=== PATIENT | female | born 1945 | race Two or more races ===

== ENCOUNTER 2021-09-08 11:35 | Outpatient (CLI) | payer MEDICARE | END 2021-09-08 23:59 | disposition home or self-care (01) | LOC: RAD 11:35 | PROVIDERS: ATTEND Internal Medicine Hematology & Oncology | DX: R91.8 Other nonspecific abnormal finding of lung field (principal); J90 Pleural effusion, not elsewhere classified; C78.00 Secondary malignant neoplasm of unspecified lung | CPT/HCPCS: 71045-TC ==

== ENCOUNTER 2021-09-27 10:12 | Outpatient (CLI) | payer MEDICARE | END 2021-09-27 23:59 | disposition home or self-care (01) | LOC: CT 10:12 | PROVIDERS: ATTEND Internal Medicine Hematology & Oncology | DX: C79.51 Secondary malignant neoplasm of bone (principal); C79.81 Secondary malignant neoplasm of breast; J90 Pleural effusion, not elsewhere classified; R91.1 Solitary pulmonary nodule; R91.8 Other nonspecific abnormal finding of lung field; K44.9 Diaphragmatic hernia without obstruction or gangrene; E04.9 Nontoxic goiter, unspecified; Z90.12 Acquired absence of left breast and nipple | CPT/HCPCS: 71250-TC ==